=== PATIENT | female | born 1975 | race Caucasian/White ===

== ENCOUNTER 2017-01-25 01:15 | Emergency (ER) | payer OTHER ==
[2017-01-25 02:19] LABS: BASOPHIL 0.2 % (0-2); HCT 44.8 % (37.0-47.0); HGB 15.8 g/dl (12.5-16.0); LYMPHOCYTE 20.2 % (15-48); MCH 31.7 pg (25.0-31.0); MCHC 35.3 g/dL (32.0-36.0); MCV 89.8 fL (78.0-100.0); MONOCYTE 6.6 % (0-12); MPV 9.3 fL (6.0-9.5); PLT 268 K/uL (150-400); RBC 4.99 M/uL (4.20-5.40); WBC 13.8 K/uL (4.0-10.5)
[2017-01-25 02:31] LABS: ALBUMIN 4.6 g/dL (3.5-5.0); BILIRUBIN - TOTAL 1.2 mg/dL (0.1-1.0); CREATININE 0.8 mg/dL (0.5-1.0); GLOBULIN (CALCULATION) 3.2 g/dL (2.2-4.2); POTASSIUM 3.8 mmol/L (3.5-5.1); TOTAL PROTEIN 7.8 g/dL (6.4-8.3)
[2017-01-25 04:57] LABS: BILIRUBIN NEGATIVE (NEGATIVE); BLOOD 1+ Ery/uL (NEGATIVE); CLARITY CLEAR (CLEAR); COLOR YELLOW (YELLOW); GLUCOSE (U) NORMAL (NORMAL); KETONE (U) NEGATIVE (NEGATIVE); LEUKOCYTES NEGATIVE Leu/uL (NEGATIVE); NITRITE NEGATIVE (NEGATIVE); PROTEIN NEGATIVE (NEGATIVE); SPECIFIC GRAVITY <=1.005 (1.001-1.030); UROBILINOGEN 0.2 mg/dL (0.2-1.0); pH 6.5 (5.0-9.0)
== END 2017-01-25 06:25 | disposition home or self-care (01) ==
LOC: FER 01:15
PROVIDERS: Emergency Medicine Emergency Medical Services
DX: R10.84 Generalized abdominal pain (principal); R11.2 Nausea with vomiting, unspecified; R00.0 Tachycardia, unspecified; E86.9 Volume depletion, unspecified; Z87.442 Personal history of urinary calculi; Z88.0 Allergy status to penicillin; Z88.6 Allergy status to analgesic agent; Z90.49 Acquired absence of other specified parts of digestive tract
CPT/HCPCS: 36415; 71010; 80053; 81001; 82150; 83605; 83690; 84484; 84703; 85025; 93005; C9113; J1170; J2270; J2405; Q9967